=== PATIENT | female | born 1955 | race Caucasian/White ===

== ENCOUNTER → 2021-06-16 08:21 | Outpatient (BNVA) | payer MEDICARE, BC, SELFPAY | PROVIDERS: PCP Internal Medicine; Visit Provider Psychiatry & Neurology Neurology ==

== ENCOUNTER → 2021-06-24 08:14 | Outpatient (BNVA) | payer MEDICARE, BC, SELFPAY | PROVIDERS: PCP Internal Medicine; Visit Provider Psychiatry & Neurology Neurology | DX: G43.909 Migraine, unspecified, not intractable, without status migrainosus (principal); M54.2 Cervicalgia | CPT/HCPCS: 99212 ==

== ENCOUNTER → 2021-09-01 14:16 | Outpatient (BNVA) | payer MEDICARE, BC, SELFPAY | PROVIDERS: PCP Physician Assistant Medical; Visit Provider Psychiatry & Neurology Neurology | DX: G43.909 Migraine, unspecified, not intractable, without status migrainosus (principal); M54.2 Cervicalgia | CPT/HCPCS: 99212 ==

== ENCOUNTER → 2021-09-29 12:45 | Outpatient (BNVA) | payer MEDICARE, SELFPAY | PROVIDERS: PCP Physician Assistant Medical; Visit Provider Nurse Practitioner Family | DX: G43.909 Migraine, unspecified, not intractable, without status migrainosus (principal); M54.2 Cervicalgia | CPT/HCPCS: 99212 ==

== ENCOUNTER → 2021-10-24 07:49 | Outpatient (BNVA) | payer MEDICARE, OTHER, SELFPAY | PROVIDERS: PCP Physician Assistant Medical; Visit Provider Nurse Practitioner Family | DX: G43.909 Migraine, unspecified, not intractable, without status migrainosus (principal); M54.2 Cervicalgia | CPT/HCPCS: 99212 ==

== ENCOUNTER → 2021-12-07 07:49 | Outpatient (BNVA) | payer MEDICARE, OTHER, SELFPAY | PROVIDERS: PCP Physician Assistant Medical; Visit Provider Nurse Practitioner Family | DX: G43.909 Migraine, unspecified, not intractable, without status migrainosus (principal); Z79.899 Other long term (current) drug therapy | CPT/HCPCS: 99212 ==

== ENCOUNTER → 2022-03-20 08:17 | Outpatient (BNVA) | payer MEDICARE, OTHER, SELFPAY | PROVIDERS: PCP Physician Assistant Medical; Visit Provider Nurse Practitioner Family | DX: G43.909 Migraine, unspecified, not intractable, without status migrainosus (principal); M54.2 Cervicalgia | CPT/HCPCS: 99212 ==

== ENCOUNTER → 2022-09-20 08:40 | Outpatient (BNVA) | payer MEDICARE, OTHER, SELFPAY | PROVIDERS: PCP Physician Assistant Medical; Visit Provider Nurse Practitioner Family | DX: G43.909 Migraine, unspecified, not intractable, without status migrainosus (principal); G47.9 Sleep disorder, unspecified; M54.2 Cervicalgia | CPT/HCPCS: 99212 ==

== ENCOUNTER 2023-04-13 08:44 | Outpatient (AMB) | payer MEDICARE, SELFPAY ==
--- NOTE | 2023-04-13 09:00 | MHC.OFFVIS ---
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 Pt reports that last Aimovig injection was Mar 25, and migraine controls well. Pt states that she had couple of mild migraine since the last visit, and she used zolmitriptan rarely. Pt is on vitamin B2 400 mg, magnesium 400 mg and amitriptyline for migraine prevention, too. She sleeps well, and uses amitriptyline as needed, not every night. No other concerns today. [facility] Medical History Sleep disorder Thyroid disease GERD (gastroesophageal reflux disease) HTN (hypertension) Surgical History Hx of shoulder surgery Family History Father Cancer Mother Cancer Social History Alcohol intake: never Patient Tobacco Use Status: Never used Tobacco Review of Systems Const All systems reviewed & are unremarkable except as noted in HPI and below ENT Reports Normal hearing present Neuro Reports Normal hearing present Physical Exam Vital Signs: Last Vital Signs Pulse 79 04/13/23 09:02 BP 150/98 H 04/13/23 09:02 Pulse Ox 98 04/13/23 09:02 Oxygen Delivery Method Room Air 04/13/23 09:02 Const General: cooperative and comfortable Orientation/consciousness: patient oriented x3 Neck Neck: Yes full ROM and Yes supple Resp Effort & Inspection: normal respiratory effort and able to speak in complete sentences Neuro General: patient oriented x3 Cranial nerves: Yes Bilaterally intact EOM present, Yes Normal facial strength present, Yes Midline tongue present, Yes Normal hearing present, Yes Ability to bilaterally rotate head present and Yes Ability to bilaterally elevate shoulders present Cognition (Neuro): normal cognition Gait exam (Neuro): Normal gait present Psych Appearance: grossly normal Mental Status: mental status grossly normal Speech and movement: Normal speech and movement present Affect: normal affect Attitude: cooperative Assessment & Plan Assessment & Plan (1) Cervicalgia: Code(s): M54.2 - Cervicalgia (2) Migraine: Code(s): G43.909 - Migraine, unspecified, not intractable, without status migrainosus (3) Difficulty sleeping: Code(s): G47.9 - Sleep disorder, unspecified Plan Advised patient to continue to take Magnesium 400 mg qHS, Vitamin B2 400 mg q AM. Continue Aimovig 140 mg injection monthly as pt has experienced good clinical effect. Advised patient to try gabapentin 100 mg along with amitriptyline 10 tabs, 2-3tabs. If she can sleep well with gabapentin 100 mg and amitriptyline 20 mg, continue to take amitripyline 20 mg. Coding Level of Care Code Est Pt Level 3 (55661) Diagnoses Cervicalgia M54.2 Migraine G43.909 Difficulty sleeping G47.9
[2023-04-13 09:02] VITALS: BP 150/98; PULSE 79; O2SAT 98
== END 2023-04-13 09:21 | disposition home or self-care (01) ==
PROVIDERS: Visit Provider Nurse Practitioner Family
DX: M54.2 Cervicalgia (principal); G43.909 Migraine, unspecified, not intractable, without status migrainosus; G47.9 Sleep disorder, unspecified
CPT/HCPCS: 99213

== ENCOUNTER → 2023-04-13 08:44 | Outpatient (BNVA) | payer MEDICARE, SELFPAY | PROVIDERS: Visit Provider Nurse Practitioner Family | DX: G43.909 Migraine, unspecified, not intractable, without status migrainosus (principal); M54.2 Cervicalgia; G47.9 Sleep disorder, unspecified | CPT/HCPCS: 99212 ==

== ENCOUNTER 2023-11-12 08:55 | Outpatient (AMB) | payer MEDICARE, SELFPAY ==
--- NOTE | 2023-11-12 08:59 | MHC.OFFVIS ---
Vital Signs 11/12/23 09:02 Weight 128 lb BP 118/82 Blood Pressure Location Rt brachial Position Sitting Pulse 74 Pulse Source Pulse Oximeter Pulse Oximetry (%) 99 Oxygen Delivery Method Room Air Intake Visit Reasons: 1 yr f/u - Migraines-CONF Intake Note: patient presents for migraines. headaches are better no issues Allergies Penicillins Allergy (Severe, Verified 11/12/23 09:03) Skin comes off, rash, painful Sulfa (Sulfonamide Antibiotics) Allergy (Mild, Verified 11/12/23 09:03) Hives all over Medication List - Last Reconciled 11/12/23 by Kerry Bonner, TREMAYNE amitriptyline 30 mg (3 x 10 mg) PO BEDTIME 30 days amlodipine 5 mg PO DAILY brimonidine 0.2% 1 drp ophthalmic (eye) TID Po-V2-pyb-wagn-mzp-forf-boron 600 mg calcium- 800 unit-40 mg (Caltrate 600-D Plus Minerals) 1 tab PO DAILY cetirizine 10 mg PO DAILY PRN erenumab-aooe (Aimovig Autoinjector) 140 mg subcut .monthly 3 months gabapentin 100 mg PO BEDTIME magnesium oxide 400 mg PO DAILY riboflavin (vitamin B2) 400 mg PO DAILY 90 days timolol 0.5% 1 drp ophthalmic (eye) DAILY timolol maleate 0.5% 1 drp ophthalmic-Right Q12H zolmitriptan 5 mg PO .once a day HPI Comments Details: 68-yr-old female presents for f/u visit. Pt denies any significant interval medical changes. Pt reports she is not having any moderate to severe migraines since starting Aimovig. Just occasionally has a mild headache in her temples which resolves quickly if she applies ice to her head. She has her zomig with her at all times, but has not needed to use it. Buys it in [place] because it is cheaper there. She tried Gabapentin for sleep, but did not tolerate it. States that in the summer, she is more physically active- takes more walks. So she does need to take anything for sleep. In the winter, she is not as active, and may occasionally need to take an amitriptyline 10mg tab qhs. Pt reports her neck is feeling better. She is f/b ortho for bilateral shoulder and back pains. She plans to do a left shoulder repair- maybe later this year. Baseline headache characteristics: Migraine w/aura- sees lightening bolts, unilateral or bilateral, frontal/nose pressure pain a/w nausea, vomiting. anorexia, photophobia, phonophobia, activity intolerance. PFSH Medical History Sleep disorder Thyroid disease GERD (gastroesophageal reflux disease) HTN (hypertension) Surgical History Hx of shoulder surgery Family History Father Cancer Mother Cancer Social History Alcohol intake: never Patient Tobacco Use Status: Never used Tobacco Physical Exam Vital Signs: Last Vital Signs Pulse 74 11/12/23 09:02 BP 118/82 11/12/23 09:02 Pulse Ox 99 11/12/23 09:02 Oxygen Delivery Method Room Air 11/12/23 09:02 Const General: cooperative and no acute distress Orientation/consciousness: patient oriented x3 Resp Effort & Inspection: normal respiratory effort and able to speak in complete sentences Neuro General: patient oriented x3 Cranial nerves: Yes CN's II-XII intact bilaterally Cognition (Neuro): normal cognition Psych Appearance: grossly normal Mental Status: mental status grossly normal Speech and movement: Normal speech and movement present Affect: normal affect Attitude: cooperative Assessment & Plan Assessment & Plan (1) Migraine with aura: Code(s): G43.109 - Migraine with aura, not intractable, without status migrainosus Category: Medical (2) Difficulty sleeping: Code(s): G47.9 - Sleep disorder, unspecified Category: Medical Plan For migraine w/ aura prevention: Continue Aimovig 140mg sc q month- Note this costs pt $300-400/month, however pt is wary to change as it is so effective. Ajovy would be less expensive on pt's current insurance formulary. For acute migraine w/ aura tx: May use ice and rest prn. Keep Zolmitriptan 5mg w/ her at all x's. For sleep: Continue to engage in regular physical activity, this is one of the most import things one can do to promote sleep. May use Amitriptyline 10-30mg qhs for sleep. Pt stopped Gabapentin- did not tolerate. For cervicalgia- Improved. Monitor clinicallyy. F/u in 6-7 months or sooner prn. Medications: Changed From erenumab-aooe (Aimovig Autoinjector) 140 mg subcut .monthly 3 months 3 mL 1RF To erenumab-aooe (Aimovig Autoinjector) 140 mg subcut ONCE 30 days 1 mL 6RF Coding Level of Care Code Est Pt Level 4 (97419) Diagnoses Migraine with aura G43.109 Difficulty sleeping G47.9
[2023-11-12 09:02] VITALS: BP 118/82; PULSE 74; O2SAT 99
== END 2023-11-12 09:41 | disposition home or self-care (01) ==
PROVIDERS: PCP Physician Assistant Medical; Visit Provider Nurse Practitioner Family
DX: G43.109 Migraine with aura, not intractable, without status migrainosus (principal); G47.9 Sleep disorder, unspecified
CPT/HCPCS: 99214

== ENCOUNTER → 2023-11-12 08:55 | Outpatient (BNVA) | payer MEDICARE, SELFPAY | PROVIDERS: PCP Physician Assistant Medical; Visit Provider Nurse Practitioner Family | DX: G43.109 Migraine with aura, not intractable, without status migrainosus (principal); G47.9 Sleep disorder, unspecified | CPT/HCPCS: 99212 ==

== ENCOUNTER 2024-03-20 13:52 | Outpatient (REF) | payer MEDICARE, SELFPAY ==
--- NOTE | 2024-03-20 14:00 | EMG_ITS ---
Chief complaint: Acute onset of burning on both arms and legs, denies numbness. History of lumbar injections but denies any ongoing back pain. History of diabetes. Reason for referral: Evaluate for neuropathy Referred by: Kerry Bonner NP Procedure done: Bilateral upper and lower extremity NCS/EMG Precautions and/or limitations: None The limb temperature was monitored continuously and remained between 32-36 degrees C during the performance of the NCS. Nerve Conduction Studies Anti Sensory Summary Table ?Stim Site NR Onset (ms) Norm Onset (ms) Peak (ms) Norm Peak (ms) O-P Amp (?V) Norm O-P Amp Site1 Site2 Delta-0 (ms) Dist (cm) Angel (m/s) Norm Angel (m/s) Left Median Anti Sensory (2nd Digit) Wrist ? 2.1 2.8 <3.6 43.2 >10 Wrist 2nd Digit 2.1 14.0 67 Right Median Anti Sensory (2nd Digit) Wrist ? 2.0 2.8 <3.6 37.9 >10 Wrist 2nd Digit 2.0 14.0 70 Left Sural Anti Sensory (Lat Mall) Calf ? 1.9 3.8 <4.0 12.7 >5.0 Calf Lat Mall 1.9 14.0 74 Right Sural Anti Sensory (Lat Mall) Calf ? 1.3 2.1 <4.0 10.0 >5.0 Calf Lat Mall 1.3 14.0 108 Left Ulnar Anti Sensory (5th Digit) Wrist ? 2.5 3.3 <3.7 9.6 >15.0 Wrist 5th Digit 2.5 14.0 56 Right Ulnar Anti Sensory (5th Digit) Wrist ? 2.0 2.9 <3.7 38.1 >15.0 Wrist 5th Digit 2.0 14.0 70 Motor Summary Table ?Stim Site NR Onset (ms) Norm Onset (ms) O-P Amp (mV) Norm O-P Amp iAmp (mV) Amp (1st) (%) Site1 Site2 Delta-0 (ms) Dist (cm) Angel (m/s) Norm Angel (m/s) Left Median Motor (Abd Poll Brev) Wrist ? 2.7 <3.9 5.3 >4.5 6.1 100.0 Elbow Wrist 3.5 18.0 51 >45 Elbow ? 6.2 5.1 5.8 96.2 Right Median Motor (Abd Poll Brev) Wrist ? 3.1 <3.9 6.9 >4.5 7.8 100.0 Elbow Wrist 3.1 17.5 56 >45 Elbow ? 6.2 6.3 7.3 91.3 Right Peroneal Motor (Ext Dig Brev) Ankle ? 4.0 <4.0 5.3 >2.5 6.6 100.0 Ankle Ext Dig Brev 4.0 0.0 B Fib ? 8.9 5.8 6.9 109.4 B Fib Ankle 4.9 24.5 50 >40 Poplt ? 9.9 5.7 6.9 107.5 Poplt B Fib 1.0 5.0 50 >40 Left Tibial Motor (Abd Ontiveros Brev) Ankle ? 3.2 <5 14.4 >2.5 18.2 100.0 Ankle Abd Ontiveros Brev 3.2 0.0 Knee ? 10.5 11.0 13.9 76.4 Knee Ankle 7.3 34.0 47 >40 Right Tibial Motor (Abd Ontiveros Brev) Ankle ? 2.7 <5 12.7 >2.5 15.5 100.0 Ankle Abd Ontiveros Brev 2.7 0.0 Knee ? 9.7 16.1 18.9 126.8 Knee Ankle 7.0 34.0 49 >40 Left Ulnar Motor (Abd Dig Minimi) Wrist ? 2.7 <3.0 10.3 >5 11.7 100.0 B Elbow Wrist 2.4 15.5 65 >45 B Elbow ? 5.1 10.8 12.4 104.9 A Elbow B Elbow 1.5 10.0 67 >45 A Elbow ? 6.6 10.1 11.7 98.1 Right Ulnar Motor (Abd Dig Minimi) Wrist ? 2.7 <3.0 8.7 >5 10.2 100.0 B Elbow Wrist 2.5 16.0 64 >45 B Elbow ? 5.2 9.0 10.7 103.4 A Elbow B Elbow 1.5 10.0 67 >45 A Elbow ? 6.7 10.0 12.0 114.9 EMG ?Side Muscle Nerve Root Ins Act Fibs Psw Amp Dur Poly Recrt Int Pat Comment Right 1stDorInt Ulnar C8-T1 Nml Nml Nml Nml Nml 0 Nml Complete Right FlexCarRad Median C6-7 Nml Nml Nml Nml Nml 0 Nml Complete Right Biceps Musculocut C5-6 Nml Nml Nml Nml Nml 0 Nml Complete Right Triceps Radial C6-7-8 Nml Nml Nml Nml Nml 0 Nml Complete Right Deltoid Axillary C5-6 Nml Nml Nml Nml Nml 0 Nml Complete Right AbdHallucis MedPlantar S1-2 Nml Nml Nml Nml Nml 0 Nml Complete Right AntTibialis Dp Br Peron L4-5 Nml Nml Nml Nml Nml 0 Nml Complete Right PostTibialis Tibial L5, S1 Nml Nml Nml Nml Nml 0 Nml Complete Right MedGastroc Tibial S1-2 Nml Nml Nml Nml Nml 0 Nml Complete Right VastusMed Femoral L2-4 Nml Nml Nml Nml Nml 0 Nml Complete FINDINGS: All motor and sensory nerves tested showed normal latencies, amplitudes and conduction velocities. Concentric needle EMG was performed in selected muscles of the right upper and lower extremities. Study did not reveal signs of electric abnormalities as shown in the table above. IMPRESSION: 1. This is a normal study. 2. There is no electrodiagnostic evidence for median neuropathy, ulnar neuropathy, brachial plexopathy, or cervical radiculopathy. 3. There is no electrodiagnostic evidence for peroneal neuropathy, tibial neuropathy, lumbosacral plexopathy, lumbar radiculopathy, or peripheral neuropathy. Thank you for your kind referral. Catherine Dyson MD, SUZAN Board Certified, [place] Board [employer] and [employer] (ABPMR) Board Certified, [place] Board [employer] Electrodiagnostic [employer] (ABEM) CODIN 77753 x 2 MTDD
== END 2024-03-20 13:53 | disposition home or self-care (01) ==
LOC: HO.NEURO 13:52
PROVIDERS: PCP Physician Assistant Medical; Visit Provider Nurse Practitioner Family
DX: R20.0 Anesthesia of skin (principal); R20.2 Paresthesia of skin; M54.2 Cervicalgia
CPT/HCPCS: 95886; 95913

== ENCOUNTER → 2024-03-20 14:00 | Outpatient (BNV) | payer MEDICARE, SELFPAY | PROVIDERS: PCP Physician Assistant Medical; Visit Provider Physical Medicine & Rehabilitation | DX: R20.0 Anesthesia of skin (principal); R20.2 Paresthesia of skin | CPT/HCPCS: 95886; 95913 ==

== ENCOUNTER 2024-07-22 10:11 | Outpatient (AMB) | payer MEDICARE, SELFPAY ==
[2024-07-22 10:38] VITALS: BP 120/76; PULSE 80; O2SAT 100
--- NOTE | 2024-07-22 10:38 | A.OFFVIS_ITS ---
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: No Accompanied by: Self / Same As Patient Allergies Penicillins Allergy (Severe, Verified 07/22/24 10:41) Skin comes off, rash, painful Sulfa (Sulfonamide Antibiotics) Allergy (Mild, Verified 07/22/24 10:41) Hives all over Medication List - Last Reconciled 07/22/24 by TREMAYNE Sandoval amitriptyline 30 mg (3 x 10 mg) PO BEDTIME 30 days amlodipine 10 mg PO DAILY brimonidine 0.2% 1 drp ophthalmic (eye) TID Bs-H3-vto-rflc-zah-nvcx-boron 600 mg calcium- 800 unit-40 mg (Caltrate 600-D Plus Minerals) 1 tab PO DAILY erenumab-aooe (Aimovig Autoinjector) 140 mg subcut ONCE 30 days magnesium oxide 400 mg PO DAILY metformin 500 mg PO DAILY timolol 0.5% 1 drp ophthalmic (eye) DAILY timolol maleate 0.5% 1 drp ophthalmic-Right Q12H HPI Comments Details: 69-yr-old female presents for f/u visit of migraine but would also like to discuss chronic burning pain. PMH is significant for type 2 diabetes mellitus, nontoxic thyroid nodule, essential hypertension, hepatic steatosis, chronic lumbar radiculopathy, fibromyalgia, generalized anxiety disorder, depression, migraine, GERD, osteoporosis, glaucoma. Pt reports she is bothered about this ongoing burning sensation- either in her back, her legs, or upper body. Her upper back is itchy. Sometimes her arms can be cold but burning at the same time. Her eyes and face feel hot and itchy- this is not a/w migraine. She is f/b ophthalmology every 4 months- at Dr Keanu Olmos in [place]. She states she recently had a rash on her arms- which resolved. She is f/b dermatology- they do not feel this is r/t a skin process. Pt reports her neck is sometimes ok, sometimes worse. She is f/b ortho for bilateral shoulder and back pains. She states she may need a left shoulder repair. She did try holding the Aimovig for 2 weeks to see if her burning symptoms resolved, but they did not, so she resumed q 4 week dosing. She denies blue/white or red skin color changes, swelling, muscle cramps. She tried Nervive nerve relief for a couple of doses. Review of labs from PCP: Positive CHRISTIANE, 1:320 02/21/2024 CBC-WNL 04/11/2024 BMP-WNL, with exception of glucose elevated at 100. 02/21/2024 HgA1C 6.8% 02/21/2024 Alk phos 184, 02/29/2024- 191 02/29/2024 phosphorus- 4.5 02/21/2024 vitamin-D, total 85.8 02/21/2024 B12 424, folic acid greater than 20. 01/22/2024 TSH 1.65 Since the above labs, patient was referred to endocrinology for further evaluation of elevated alkaline phosphatase, which was felt to be secondary to decreased oral calcium intake and osteoporosis. Patient states she has not had follow-up related to positive CHRISTIANE finding. She states her son has a rheumatological disorder- but unsure which, he is seen in [place]. States that in the summer, she is more physically active- takes more walks and so does need to take anything for sleep. In the winter, when she is not as active, she has more sleep dififculties. She is now needing to use Amitriptyline up to 50mg qhs to help her sleep. States she does not gael this in the summer as much. The burning sensation is not better when she takes more amitriptyline. She does have dry mouth. She also is having constipation which she feels is d/t metformin and calcium. She stopped Magnesium- as this was not helping with the constipation. States the constipation was not present after starting Aimovig. Pt reports since starting Aimovig, she rarely has a moderate-severe migraine, less than once a month. Just occasionally has a mild headache in her temples which resolves quickly if she applies ice to her head. She has her zomig 5mg with her at all times. Buys it in [place] because it is cheaper there. She took Zomig last month, which was very effective- she notes that the burning sensations also stopped for the entire day. Baseline headache characteristics: Migraine w/aura- sees lightening bolts, unilateral or bilateral, frontal/nose pressure pain a/w nausea, vomiting. anorexia, photophobia, phonophobia, activity intolerance. PFSH Medical History Sleep disorder Thyroid disease GERD (gastroesophageal reflux disease) HTN (hypertension) Surgical History Hx of shoulder surgery Family History Father Cancer Mother Cancer Social History Alcohol intake: never Patient Tobacco Use Status: Never used Tobacco Physical Exam Vital Signs: Last Vital Signs Pulse 80 07/22/24 10:38 BP 120/76 07/22/24 10:38 Pulse Ox 100 07/22/24 10:38 Oxygen Delivery Method Room Air 07/22/24 10:38 Const General: cooperative and no acute distress Orientation/consciousness: patient oriented x3 Resp Effort & Inspection: normal respiratory effort and able to speak in complete sentences Skin Other: Mild dry, non-erythematous papular rash across medial thoracic aspect of back. Neuro General: patient oriented x3 and no focal motor deficits Cranial nerves: Yes CN's II-XII intact bilaterally Cognition (Neuro): normal cognition Gait exam (Neuro): Normal gait present Psych Appearance: grossly normal Mental Status: mental status grossly normal Speech and movement: Normal speech and movement present Affect: normal affect Attitude: cooperative Assessment & Plan Assessment & Plan (1) Migraine with aura: Code(s): G43.109 - Migraine with aura, not intractable, without status migrainosus Category: Medical (2) Difficulty sleeping: Code(s): G47.9 - Sleep disorder, unspecified Category: Medical (3) Paresthesia of upper and lower extremities of both sides: Code(s): R20.2 - Paresthesia of skin Category: Medical Plan For chronic burning pain: Reviewed previous workup which is notable for Positive CHRISTIANE, 1:320. She also reports her son has a rheumatological condition which is being treated in [place], patient was asked to clarify with her son with his specific rheumatological disorder is. We will take the liberty of referring patient to Rheumatology, to assess for Sjogren's syndrome. Future considerations to include skin biopsy. For migraine w/ aura prevention: Continue Aimovig 140mg sc q month- Note this costs pt $300-400/month, however pt is wary to change as it is so effective. Ajovy would be less expensive on pt's current insurance formulary. For acute migraine w/ aura tx: May use ice and rest prn. Keep Zolmitriptan 5mg w/ her at all x's. For sleep: Continue to engage in regular physical activity, this is one of the most import things one can do to promote sleep. May use Amitriptyline 10-30mg qhs for sleep. Pt stopped Gabapentin- did not tolerate. For cervicalgia- Improved. Monitor clinically. F/u in 6-7 months or sooner prn. Coding Level of Care Code Est Pt Level 4 (56894) Diagnoses Migraine with aura G43.109 Difficulty sleeping G47.9 Paresthesia of upper and lower extremities of both sides R20.2
== END 2024-07-22 11:51 | disposition home or self-care (01) ==
PROVIDERS: PCP Physician Assistant Medical; Visit Provider Nurse Practitioner Family
DX: G43.109 Migraine with aura, not intractable, without status migrainosus (principal); G47.9 Sleep disorder, unspecified; R20.2 Paresthesia of skin
CPT/HCPCS: 99214

== ENCOUNTER → 2024-07-22 10:11 | Outpatient (BNVA) | payer MEDICARE, SELFPAY | PROVIDERS: PCP Physician Assistant Medical; Visit Provider Nurse Practitioner Family | DX: G43.109 Migraine with aura, not intractable, without status migrainosus (principal); G47.9 Sleep disorder, unspecified; R20.2 Paresthesia of skin | CPT/HCPCS: 99212 ==

== ENCOUNTER 2025-01-27 07:38 | Outpatient (AMB) | payer MEDICARE, SELFPAY ==
--- OUTSIDE RECORDS SUMMARY | 2025-01-22 07:42 | XMS_ITS | Encounter Summary ---
Author Organization [facility] Address [address] [place] [address] Care Team Providers Care Orthopedic Shoe Fitter Name Role Phone Uriel Pope Primary Care Provider [phone] Reason for Referral * Hospital - Outpatient (Routine) - Closed Specialty Diagnoses / Procedures Referred By [facility] Referred To Contact Diagnoses Colon cancer screening Procedures COLONOSCOPY Anesthesia - MAC; [facility] ENDOSCOPY Samuel Guy MD [address] [address] Phone: tel: fax: [facility] Endoscopy [address] [place] [address] Referral ID Status Reason Start Date Expiration Date Visits Re quested Visits Authorized [id number] Closed 09/30/2024 09/30/2025 1 1 Reason for Visit * Auth/Cert (Routine) Specialty Diagnoses / Procedures Referred By [facility] Referred To Contact Diagnoses Encounter for screening for malignant neoplasm of colon Procedures COLONOSCOPY [facility] Endoscopy [address] [place] [address] Phone: tel: Referral ID Status Reason Start Date Expiration Date Visits Re quested Visits Authorized [id number] 1 1 Encounter Details Date Type Department Care Team (Latest Contact Info) Description 01/22/2025 7:42 AM EDT - 01/22/2025 11:59 PM EDT Hospital Encounter [facility] Endoscopy [address] [place] [address] Samuel Guy MD [address] [place] [phone] Evelina DevanDO [address] [place] [address] Armin Gao CRNA [address] [place], [place] [phone] Colon cancer screening Discharge Disposition: Home or Self Care Social History Tobacco Use Types Packs/Day Years Used Date Smoking Tobacco: Never Smokeless Tobacco: Never Alcohol Use Standard Drinks/Week Comments No 0 (1 standard drink = 0.6 oz pur e alcohol) Interpersonal Safety Answer Date Record ed Physical Abuse 01/22/2025 Verbal Abuse 01/22/2025 Comments No Sex and Gender Information Value Date Recorded Sex Assigned at Female 01/03/2025 12:31 PM EDT Legal Sex Female 3:21 AM EST Gender Identity Female 01/03/2025 12:31 PM EDT Sexual Orientation Straight 01/22/2025 7: 38 AM EDT Travel History Travel Start Travel End Shukri 12/01/2024 01/03/2025 documented as of this encounter Last Filed Vital Signs Vital Sign Reading Time Taken Comments Blood Pressure 128/79 01/22/2025 9:52 AM EDT Pulse 69 01/22/2025 9:52 AM EDT Temperature 36.3 C (97.3 F) 01/22/2025 8:30 AM EDT Respiratory Rate 16 01/22/2025 9:52 AM EDT Oxygen Saturation 100% 01/22/2025 9:52 AM EDT Inhaled Oxygen Concentration - - Weight 46.7 kg (103 lb) 01/22/2025 8:30 AM EDT Height 144.8 cm (4' 9 ) 01/22/2025 8:30 AM EDT Body Mass Index 22.29 01/22/2025 8:30 AM EDT documented in this encounter Discharge Instructions * Attachments The following attachments cannot be sent through Care Everywhere. * Hemorrhoids (Albanian) * Colonoscopy: Post op (Albanian) documented in this encounter Medications at Time of Discharge amitriptyline (ELAVIL) 10 mg tablet Take 1 tablet (10 mg total) by mouth at bedtime. 03/02/2021 amLODIPine (NORVASC) 5 mg tablet Take 2 tablets (10 mg total) by mouth 1 (one) time each day. 02/01/2021 Bifidobacterium infantis (Align) 4 mg capsule one tablet by mouth daily. 04/09/2015 calcium citrate/vitamin D3 (CITRACAL + D MAXIMUM ORAL) Take by mouth 2 (two) times a day. dorzolamide-malia loL (COSOPT) 22.3-6.8 mg/mL ophthalmic solution 1 drop 2 (two) times a day. erenumab-aooe (Aimovig Autoinjector) 140 mg/mL injection Inject 1 mL (140 mg total) under the skin every 30 (thirty) days. 12/24/2020 lansoprazole (PREVACID) [address] capsule Take 2 capsules (30 mg total) by mouth 1 (one) time each day before breakfast. latanoprost (XALATAN) 0.005 % ophthalmic solution Administer 1 drop into both eyes at bedtime. magnesium oxide (MAG-OX) 400 mg magnesium tablet Take 1 tablet (400 mg total) by mouth 1 (one) time each day. metFORMIN (FORTAMET) 500 mg 24 hr tablet Take 1 tablet (500 mg total) by mouth 1 (one) time each day with dinner. Do not crush, chew, or split. riboflavin (VITAMIN B2) 400 mg tablet Take 1 tablet (400 mg total) by mouth 1 (one) time each day. triamcinolone (NASACORT) 55 mcg nasal inhaler Administer 1 spray into affected nostril(s) 1 (one) time each day. 09/17/2019 documented as of this encounter Discharge Disposition Disposition Code Departure Means Destination Home or Self Care documented in this encounter Progress Notes * Huma Dunn RN - 01/22/2025 9:57 AM EDT Problem: Cognitive:Periop Procedure - Minor Goal: Knowledge of disease or condition will improve Outcome: Adequate for Discharge Problem: Sensory:Periop Procedure - Minor Goal: Demonstrates/reports adequate pain control Outcome: Adequate for Discharge * July Zarco RN - 01/22/2025 8:33 AM EDT Problem: Cognitive:Periop Procedure - Minor Goal: Knowledge of disease or condition will improve Outcome: Progressing Problem: Sensory:Periop Procedure - Minor Goal: Demonstrates/reports adequate pain control Outcome: Progressing PT VERBALIZED UNDERSTAND OF DC INSTRUCTIONS, FALL RISK REVIEWED, CALL KERR AT BEDSIDE. documented in this encounter H&P Notes * Samuel Guy MD - 01/22/2025 9:00 AM EDT Pre-Op Diagnosis: CRC Screening Proposed Procedure: Colonoscopy Performing Surgeon/MD/Endoscopist: Samuel Guy MD Medical/History: Past Medical History: Diagnosis Date Anemia Anxiety Depression Diabetes mellitus ([facility] V24, [facility] V28) GERD (gastroesophageal reflux disease) Glaucoma Hypertension Migraines Past Surgical History: Procedure Laterality Date CHOLECYSTECTOMY PROCEDURE: HISTORICAL CHOLECYSTECTOMY HYSTERECTOMY PROCEDURE: HISTORICAL HYSTERECTOMY SHOULDER SURGERY Right Medications/Allergies: Prior to Admission medications Medication Sig Start Date End Date Taking? Authorizing Provider amitriptyline (ELAVIL) 10 mg tablet Take 1 tablet (10 mg total) by mouth at bedtime. 03/02/21 Yes Historical Provider, amLODIPine (NORVASC) 5 mg tablet Take 2 tablets (10 mg total) by mouth 1 (one) time each day. 02/01/21 Yes Historical Provider, Bifidobacterium infantis (Align) 4 mg capsule one tablet by mouth daily. 04/09/15 Yes Historical Provider, calcium citrate/vitamin D3 (CITRACAL + D MAXIMUM ORAL) Take by mouth 2 (two) times a day. Yes Historical Provider, dorzolamide-timoloL (COSOPT) 22.3-6.8 mg/mL ophthalmic solution 1 drop 2 (two) times a day. Yes Historical Provider, lansoprazole (PREVACID) [address] capsule Take 2 capsules (30 mg total) by mouth 1 (one) time each day before breakfast. Yes Historical Provider, latanoprost (XALATAN) 0.005 % ophthalmic solution Administer 1 drop into both eyes at bedtime. Yes Historical Provider, magnesium oxide (MAG-OX) 400 mg magnesium tablet Take 1 tablet (400 mg total) by mouth 1 (one) timeeach day. Yes Historical Provider, metFORMIN (FORTAMET) 500 mg 24 hr tablet Take 1 tablet (500 mg total) by mouth 1 (one) time each day with dinner. Do not crush, chew, or split. Yes Historical Provider, riboflavin (VITAMIN B2) 400 mg tablet Take 1 tablet (400 mg total) by mouth 1 (one) time each day. Yes Historical Provider, erenumab-aooe (Aimovig Autoinjector) 140 mg/mL injection Inject 1 mL (140 mg total) under the skin every 30 (thirty) days. 12/24/20 Historical Provider, triamcinolone (NASACORT) 55 mcg nasal inhaler Administer 1 spray into affected nostril(s) 1 (one) time each day. 09/17/19 Historical Provider, bisacodyL (DULCOLAX) 5 mg EC tablet Take 2 tablets by mouth right before beginning bowel prep. See instructions provided by the office 01/08/25 01/22/25 Chanelle Jackson NP brimonidine 0.025 % drops Administer 1 drop into both eyes every 8 (eight) hours. Patient not taking: Reported on 01/15/2025 01/22/25 Historical Provider, diclofenac (Voltaren) 1 % topical gel APPLY SPARINGLY TO AFFECTED AREA(S) ONCE DAILY Patient not taking: Reported on 01/15/2025 02/02/15 01/22/25 Historical Provider, diclofenac (VOLTAREN) 75 mg EC tablet Take 1 tablet (75 mg total) by mouth. Patient not taking: Reported on 01/15/2025 08/10/20 01/22/25 Historical Provider, hydrocortisone 1 % ointment Apply topically 2 (two) times a day. Patient not taking: Reported on 01/15/2025 01/22/25 Historical Provider, polyethylene glycol (Golytely) 236-22.74-6.74 -5.86 gram solution Take 4L by mouth once for one dose. May substitue any PEG. Starting at 2PM the day before your procedure drink 1 8oz glasses at your own pace until you complete half of the gallon. Finish 2nd half of the gallon at 8PM. 01/08/25 01/22/25Chanelle Jackson NP timoloL (BETIMOL) 0.5 % ophthalmic solution Administer 1 drop into the right eye 1 (one) time each day. Patient not taking: Reported on 01/15/2025 01/22/25 Historical Provider, VIT B COMPLEX 100 COMBO NO.2 ORAL Take by mouth. Patient not taking: Reported on 01/15/2025 01/22/25 Historical Provider, ZOLMitriptan (ZOMIG) 5 mg tablet Take 1 tablet (5 mg total) by mouth. Patient not taking: Reported on 01/15/2025 02/18/21 01/22/25 Historical Provider, Patient Age:69 y.o. Vitals: Vitals: 01/22/25 0830 BP: (!) 150/89 Pulse: 70 Resp: 16 Temp: 36.3 ??C (97.3 ??F) SpO2: 100% Physical Exam: Mental Status: Clear HEENT: WNL Heart: WNL Lungs: WNL Abdomen: WNL Extremities: WNL Neuro: WNL Labs: Imaging: Diagnosis/Plan: Screening Colonoscopy documented in this encounter Procedure Notes * Huma Dunn RN - 01/22/2025 9:57 AM EDT FINDINGS AND DISCHARGE INSTRUCTIONS REVIEWED WITH PT. PT VERBALIZES UNDERSTANDING. PT SAUL PO PRIOR TO D/C. PT D/C'D WITH BELONGINGS. documented in this encounter Plan of Treatment Not on file documented as of this encounter Procedures Procedure Name Priority Date/Time Associated Diagnosis Comments COLONOSCOPY Routine 01/22/2025 9:31 AM EDT Colon cancer screening documented in this encounter Results * COLONOSCOPY Anesthesia - MAC; [facility] ENDOSCOPY (01/22/2025 9:31 AM EDT) Anatomical Region Laterality Modality Other 01/22/2025 9:03 AM EDT Impressions 01/22/2025 9:32 AM EDT - Internal hemorrhoids. - No specimens collected. Recommendation: - Repeat colonoscopy in 10 years for screening purposes. - Use fiber, for example Citrucel, Fibercon, Konsyl or Metamucil. Narrative 01/22/2025 9:32 AM EDT [facility] GI Patient Name: Ana Maria Quintana Procedure Date: 01/22/2025 9:03 AM Date of : 1955 Age: 69 Gender: Female Note Status: Finalized Attending MD: Samuel Guy MD, Procedure Date No Time: 01/22/2025 Procedure: Colonoscopy Indications: Screening for colorectal malignant neoplasm Providers: Samuel Guy MD Referring MD: Samuel Guy MD Medicines: Propofol per Anesthesia Complications: No immediate complications. Estimated Blood Loss: Estimated blood loss: none. Procedure: Pre-Anesthesia Assessment: - ASA Grade Assessment: II - A patient with mild systemic disease. After I obtained informed consent, the scope was passed under direct vision. Throughout the procedure, the patient's blood pressure, pulse, and oxygen saturations were monitored continuously.The Olympus Pediatric Colonosocpe was introduced through the anus and advanced to the cecum, identified by appendiceal orifice and ileocecal valve. The colonoscopy was performed without difficulty. The patient tolerated the procedure well. The quality of the bowel preparation was good. Findings: The perianal and digital rectal examinations were normal. Internal hemorrhoids were found during endoscopy. The hemorrhoids were Grade I (internal hemorrhoids that do not prolapse). Procedure Code(s): --- Professional --- G0121, Colorectal cancer screening; colonoscopy on individual not meeting criteria for high risk Diagnosis Code(s): --- Professional --- Z12.11, Encounter for screening for malignant neoplasm of colon K64.0, First degree hemorrhoids CPT copyright 2020 [employer]. All rights reserved. The codes documented in this report are preliminary and upon thread milling machine set up operator review may be revised to meet current compliance requirements. Samuel Guy MD 01/22/2025 9:31:59 AM This report has been signed electronically.Samuel Guy MD Number of Addenda: 0 Note Initiated On: 01/22/2025 9:03 AM Scope In: Scope Out: Endoscopy Department at [facility] - [address] [place] [id number] Procedure Note Samuel Guy MD - 01/22/2025 [facility] GI Patient Name: Ana Maria Quintana Procedure Date: 01/22/2025 9:03 AM Date of : 1955 Age: 69 Gender: Female Note Status: Finalized Attending MD: Samuel Guy MD, Procedure Date No Time: 01/22/2025 Procedure: Colonoscopy Indications: Screening for colorectal malignant neoplasm Providers: Samuel Guy MD Referring MD: Samuel Guy MD Medicines: Propofol per Anesthesia Complications: No immediate complications. Estimated Blood Loss: Estimated blood loss: none. Procedure: Pre-Anesthesia Assessment: - ASA Grade Assessment: II - A patient with mild systemic disease. After I obtained informed consent, the scope was passed under direct vision. Throughout theprocedure, the patient's blood pressure, pulse, and oxygen saturations were monitored continuously.The Olympus Pediatric Colonosocpe was introduced through theanus and advanced to the cecum, identified byappendiceal orifice and ileocecal valve. The colonoscopy was performed without difficulty. The patient tolerated the procedure well. The quality of the bowel preparation was good. Findings: The perianal and digital rectal examinations were normal. Internal hemorrhoids were found during endoscopy.The hemorrhoids were Grade I (internal hemorrhoids thatdo not prolapse). Procedure Code(s): --- Professional --- G0121, Colorectal cancer screening; colonoscopy on individual not meeting criteria for high risk Diagnosis Code(s): --- Professional --- Z12.11, Encounter for screening for malignantneoplasm of colon K64.0, First degree hemorrhoids CPT copyright 2020 [employer]. All rights reserved. The codes documented in this report are preliminary and upon thread milling machine set up operator reviewmay be revised to meet current compliance requirements. Samuel Guy MD 01/22/2025 9:31:59 AM This report has been signed electronically.Samuel Guy MD Number of Addenda: 0 Note Initiated On: 01/22/2025 9:03 AM Scope In: Scope Out: Endoscopy Department at [facility] - [address] [place] [phone] IMPRESSION: - Internal hemorrhoids. - No specimens collected. Recommendation: - Repeat colonoscopy in 10 years for screening purposes. - Use fiber, for example Citrucel, Fibercon, Konsylor Metamucil. us Samuel Guy MD GI~PROCEDURE ORDERABLES Final Re sult documented in this encounter Visit Diagnoses Diagnosis Colon cancer screening Special screening for malignant neoplasms, colon documented in this encounter Discontinued Medications Medication Sig Discontinue Reason Start Date End Da te bisacodyL (DULCOLAX) 5 mg EC tablet Take 2 tablets by mouth right before beginning bowel prep. See instructions provided by the office 01/08/2025 01/22/2025 brimonidine 0.025 % drops Administer 1 drop into both eyes every 8 (eight) hours. 01/22/2025 diclofenac (Voltaren) 1 % topical gel APPLY SPARINGLY TO AFFECTED AREA(S) ONCE DAILY 02/02/2015 01/22/2025 diclofenac (VOLTAREN) 75 mg EC tablet Take 1 tablet (75 mg total) by mouth. 08/10/2020 01/22/2025 hydrocortisone 1 % ointment Apply topically 2 (two) times a day. 01/22/2025 polyethylene glycol (Golytely) 236-22.74-6.74 -5.86 gram solution Take 4L by mouth once for one dose. May substitue any PEG. Starting at 2PM the day before your procedure drink 1 8oz glasses at your own pace until you complete half of the gallon. Finish 2nd half of the gallon at 8PM. 01/08/2025 01/22/2025 timoloL (BETIMOL) 0.5 % ophthalmic solution Administer 1 drop into the right eye 1 (one) time each day. 01/22/2025 ZOLMitriptan (ZOMIG) 5 mg tablet Take 1 tablet (5 mg total) by mouth. 02/18/2021 01/22/2025 VIT B COMPLEX 100 COMBO NO.2 ORAL Take by mouth. 01/22/2025 documented as of this encounter Historical Medications * This list may reflect changes made after this encounter. dorzolamide-timol oL (COSOPT) 22.3-6.8 mg/mL ophthalmic solution 1 drop 2 (two) times a day. riboflavin (VITAMIN B2) 400 mg tablet Take 1 tablet (400 mg total) by mouth 1 (one) time each day. added in this encounter Orders Discharge Count Last Ordered Date First Orde red Date DISCHARGE PATIENT 1 01/22/2025 documented in this encounter Care Teams Orthopedic Shoe Fitter Relationship Specialty Start Date End Date Uriel Pope PA [address] [place] [address] PCP - General Physician Monitoring Specialist 09/29/24 documented as of this encounter
--- OUTSIDE RECORDS SUMMARY | 2025-01-22 09:07 | XMS_ITS | Encounter Summary ---
Author Organization [employer] Address [address] [place] [address] Care Team Providers Care Mechanical Energy Engineer Name Role Phone Uriel Pope Primary Care Provider [phone] Reason for Visit * Auth/Cert (Routine) Specialty Diagnoses / Procedures Referred By Fern branch Referred To Contact Diagnoses Encounter for screening for malignant neoplasm of colon Procedures COLONOSCOPY [facility] [address] [place] [address] Phone: tel: Referral ID Status Reason Start Date Expiration Date Visits Re quested Visits Authorized [id number] 1 1 Encounter Details Date Type Department Care Team (Late st Contact Info) Description 01/22/2025 9:07 AM EDT Anesthesia Event [facility] Endoscopy [address] [place] [id number] Devan Hoyt DO [address] [place] [address] Anesthesia Record Procedure Summary Procedure Name Responsible Anesthesiologist Anesthesia Start Time Anesthesia Stop Time COLONOSCOPY Devan Hoyt DO 01/22/25 0907 0934 Events Date Time Event Comment 01/22/2025 0827 0907 An Start 0907 An Start Data The patient wa s reevaluated immediately before moderate or deep sedation use and before anesthesia induction. 0907 In Room 0911 Anesthesia Ready 0929 an stop data 0931 Out of Room 0931 Handoff to RN I completed my handoff to the receiving nurse during which we: 1. Identified the patient 2. Identified the responsible provider 3. Reviewed the pertinent medical history 4. Discussed the surgical course 5. Reviewed intra-op anesthesia management and issues during anesthesia 6. Set expectations for post-procedure period 7. Allowed opportunity for questions and acknowledgement of understanding. 933 An Stop Meds Name Total propofol (DIPRIVAN) injection 10 mg/mL 2 10 mg lidocaine PF (XYLOCAINE-MPF) local injec tion 2% 50 mg lactated Ringer's infusion 0 mL * Agents No agents on file. * Blood No blood administrations on file. Lines, Drains, and Airways Type Details Placement Removal Peripheral IV Placement Date: 01/03 06/28; Placement Time: 834; Catheter Size: 20 G; Orientation: Posterior, Right; Location: Hand; Site Prep: Chlorhexidine; Insertion Attempts: 1; Patient Tolerance: Tolerated well; Removal Date: 01/22/25; Removal Time: 94901/22/25834 by July Zarco RN 01/22/25949 by Huma Dunn RN documented in this encounter Social History Tobacco Use Types Packs/Day Years [...] EDT Travel History Travel Start Travel End [facility] 12/01/2024 01/03/2025 documented as of this encounter Progress Notes * Armin Gao CRNA - 01/22/2025 9:34 AM EDT Patient: Ana Maria Quintana Procedure Summary Date: 01/22/25 Room / Location: [facility] Endoscopy Anesthesia Start: 906 Anesthesia Stop: 933 Procedure: COLONOSCOPY Diagnosis: Colon cancer screening (Screening for colorectal malignant neoplasm) Scheduled Providers: Samuel Guy MD; Devan Hoyt DO; Armin Gao CRNA Responsible Provider: Devan Hoyt DO Anesthesia Type: MAC ASA Status: 2 Anesthesia Plan: MAC Last Vitals: Vitals Value Taken Time BP 114/72 01/22/25 0934 Temp 97 01/22/25 0934 Pulse 69 01/22/25 0934 Resp 16 01/22/25 0934 SpO2 99 01/22/25 0934 No data recorded Anesthesia Post Evaluation Patient location during evaluation: PACU Patient participation: waiting for patient participation Level of consciousness: responsive to light touch Pain score: 0 Pain management: adequate Airway patency: patent Anesthetic complications: no Cardiovascular status: acceptable and stable Respiratory status: acceptable Hydration status: acceptable Nausea: No Vomiting: No There were no known notable events for this encounter. * Devan Hoyt DO - 01/22/2025 8:26 AM EDT 69 y.o. female scheduled for Colon cancer screening [COLONOSCOPY] Ht Readings from Last 1 Encounters: 01/15/25 1.473 m (58 ) Wt Readings from Last 1 Encounters: 01/15/25 47.6 kg (105 lb) Body mass index is 21.95 kg/m??. No past medical history on file. Past Surgical History: Procedure Laterality Date CHOLECYSTECTOMY PROCEDURE: HISTORICAL CHOLECYSTECTOMY HYSTERECTOMY PROCEDURE: HISTORICAL HYSTERECTOMY Denies anesthesia complications Allergies Allergen Reactions Buspirone Carisoprodol-Aspirin Nausea And Vomiting Codeine Nausea And Vomiting Gabapentin Nausea And Vomiting Hydrocodone Nausea And Vomiting Naproxen Oxycodone GI intolerance Penicillins Sulfadiazine Rash Tramadol Nausea And Vomiting Iodine Rash Current Outpatient Medications on File Prior to Encounter Medication Sig Dispense Refill amitriptyline (ELAVIL) 10 mg tablet Take 1 tablet (10 mg total) by mouth at bedtime. amLODIPine (NORVASC) 5 mg tablet Take 2 tablets (10 mg total) by mouth 1 (one) time each day. Bifidobacterium infantis (Align) 4 mg capsule one tablet by mouth daily. calcium citrate/vitamin D3 (CITRACAL + D MAXIMUM ORAL) Take by mouth 2 (two) times a day. dorzolamide-timoloL (COSOPT) 22.3-6.8 mg/mL ophthalmic solution 1 drop 2 (two) times a day. lansoprazole (PREVACID) [address] capsule Take 2 capsules (30 mg total) by mouth 1 (one) time each day before breakfast. latanoprost (XALATAN) 0.005 % ophthalmic solution Administer 1 drop into both eyes at bedtime. magnesium oxide (MAG-OX) 400 mg magnesium tablet Take 1 tablet (400 mg total) by mouth 1 (one) timeeach day. metFORMIN (FORTAMET) 500 mg 24 hr tablet Take 1 tablet (500 mg total) by mouth 1 (one) time each day with dinner. Do not crush, chew, or split. riboflavin (VITAMIN B2) 400 mg tablet Take 1 tablet (400 mg total) by mouth 1 (one) time each day. erenumab-aooe (Aimovig Autoinjector) 140 mg/mL injection Inject 1 mL (140 mg total) under the skin every 30 (thirty) days. polyethylene glycol (Golytely) 236-22.74-6.74 -5.86 gram solution Take 4L by mouth once for one dose. May substitue any PEG. Starting at 2PM the day before your procedure drink 1 8oz glasses at your own pace until you complete half of the gallon. Finish 2nd half of the gallon at 8PM. 4000 mL 0 timoloL (BETIMOL) 0.5 % ophthalmic solution Administer 1 drop into the right eye 1 (one) time each day. (Patient not taking: Reported on 01/15/2025) triamcinolone (NASACORT) 55 mcg nasal inhaler Administer 1 spray into affected nostril(s) 1 (one) time each day. VIT B COMPLEX 100 COMBO NO.2 ORAL Take by mouth. (Patient not taking: Reported on 01/15/2025) ZOLMitriptan (ZOMIG) 5 mg tablet Take 1 tablet (5 mg total) by mouth. (Patient not taking: Reportedon 01/15/2025) [DISCONTINUED] bisacodyL (DULCOLAX) 5 mg EC tablet Take 2 tablets by mouth right before beginning bowel prep. See instructions provided by the office 2 tablet 0 [DISCONTINUED] brimonidine 0.025 % drops Administer 1 drop into both eyes every 8 (eight) hours. (Patient not taking: Reported on 01/15/2025) [DISCONTINUED] diclofenac (Voltaren) 1 % topical gel APPLY SPARINGLY TO AFFECTED AREA(S) ONCE DAILY(Patient not taking: Reported on 01/15/2025) [DISCONTINUED] diclofenac (VOLTAREN) 75 mg EC tablet Take 1 tablet (75 mg total) by mouth. (Patientnot taking: Reported on 01/15/2025) [DISCONTINUED] hydrocortisone 1 % ointment Apply topically 2 (two) times a day. (Patient not taking: Reported on 01/15/2025) No current facility-administered medications on file prior to encounter. Current In-hospital Medications Prior to Admission medications Medication Sig Start [...] every 30 (thirty) days. 12/24/20 Historical Provider, polyethylene glycol (Golytely) 236-22.74-6.74 -5.86 gram solution Take 4L by mouth once for one dose. May substitue any PEG. Starting at 2PM the day before your procedure drink 1 8oz glasses at your own pace until you complete half of the gallon. Finish 2nd half of the gallon at 8PM. 01/08/25 Chanelle Jackson NP timoloL (BETIMOL) 0.5 % ophthalmic solution Administer 1 drop into the right eye 1 (one) time each day. Patient not taking: Reported on 01/15/2025 Historical Provider, triamcinolone (NASACORT) 55 mcg nasal inhaler Administer 1 spray into affected nostril(s) 1 (one) time each day. 09/17/19 Historical Provider, VIT B COMPLEX 100 COMBO NO.2 ORAL Take by mouth. Patient not taking: Reported on 01/15/2025 Historical Provider, ZOLMitriptan (ZOMIG) 5 mg tablet Take 1 tablet (5 mg total) by mouth. Patient not taking: Reported on 01/15/2025 02/18/21 Historical Provider, bisacodyL (DULCOLAX) 5 mg EC [...] taking: Reported on 01/15/2025 08/10/20 01/22/25 Historical ProviderMD hydrocortisone 1 % ointment Apply topically 2 (two) times a day. Patient not taking: Reported on 01/15/2025 01/22/25 Historical ProviderMD Social History Tobacco Use Smoking status: Never Smokeless tobacco: Never Substance Use Topics Alcohol use: No Is the patient a current smoker (e.g. cigarette, cigar, pip, e-cigarette, or mariajuana)? Yes [] No[] Patient previously instructed to abstain from smoking on the day of procedure? Yes [] No[] Patient smoked on the day of procedure? Yes [] No[] ASPIRE smoking VBR: [] Not interested in quitting [] Interested in quitting- referred to treatment [] Interested in quitting - treatment provided Visit Vitals Ht 1.473 m (58 ) Wt 47.6 kg (105 lb) BMI 21.95 kg/m?? Smoking Status Never BSA 1.38 m?? LABS: No results found for: WBC , HGB , HCT , MCV , PLT No results found for: GLUCOSE , CALCIUM , NA , K , CO2 , CL , BUN , CREATININE No results found for: INR , PROTIME No results found for: PTT EKG No results found for this or any previous visit (from the past 4464 hours). ECHO No results found for this or any previous visit. CATH No results found for this or any previous visit. Relevant Problems Cardio (+) Essential hypertension (+) Internal hemorrhoids (+) Migraine Neuro/Psych (+) Migraine GI (+) Esophageal reflux (+) Fatty liver Clinical information reviewed: Allergies Meds Anesthesia Plan ASA 2 Anesthesia Plan: MAC Anesthesia Risks Discussed serious complications Induction method: intravenous Anesthetic plan and risks discussed with patient. Anesthesia Evaluation Patient summary reviewed Airway Mallampati: II Dental - normal exam Pulmonary - normal exam Cardiovascular - normal exam (+) hypertension Neuro/Psych GI/Hepatic/Renal (+) GERD, liver disease Endo/Other Abdominal PONV RISK SCORE: 2 Vitals: 01/15/25 1000 Weight: 47.6 kg (105 lb) Height: 1.473 m (58 ) SpO2 Readings from Last 1 Encounters: No data found for SpO2 No results found for: WBC , RBC , HGB , HCT , PLT , MCV Allergies Allergen Reactions Buspirone Carisoprodol-Aspirin Nausea And Vomiting Codeine Nausea And Vomiting Gabapentin Nausea And Vomiting Hydrocodone Nausea And Vomiting Naproxen Oxycodone GI intolerance Penicillins Sulfadiazine Rash Tramadol Nausea And Vomiting Iodine Rash STOP BANG: No data recorded NPO Status: No data recorded documented in this encounter Plan of Treatment Not on file documented as of this encounter Visit Diagnoses Not on filedocumented in this encounter Administered Medications Inactive Administered Medications - up to 3 most recent administrations Medication Order MAR Action Action Date Dose Rate Site lactated Ringer's infusion intravenous, Continuous PRN, Starting on Rimma 01/22/25 at 0912, Anesthesia Intraprocedure Rate/Dose Change 01/22/2025 9:28 AM EDT 400 mL/hr New Bag 01/22/2025 9:12 AM EDT 125 mL/hr lidocaine (PF) (XYLOCAINE-MPF) 2 % injection injection, As needed, Starting on Rimma 01/22/25 at 0912, Anesthesia Intraprocedure Given 01/22/2025 9:12 AM EDT 50 mg propofoL (DIPRIVAN) injection intravenous, As needed, Starting on Rimma 01/22/25 at 0912, Anesthesia Intraprocedure Given 01/22/2025 9:22 AM EDT 3 0 mg Given 01/22/2025 9:17 AM EDT 50 mg Given 01/22/2025 9:13 AM EDT 50 mg documented in this encounter Care Teams Mechanical Energy Engineer Relationship Specialty Start Date End Date Uriel Pope PA [address] [place] [address] PCP - General Physician Ground Source Heat Pump Technician 09/29/24 documented as of this encounter
--- OUTSIDE RECORDS SUMMARY | 2025-01-27 07:44 | XMS_ITS | Clinical Summary ---
Author Organization [address] [facility] Address [address] [place] [address] Phone Care Team Providers Care Four Roll Calender Operator Name Role Phone Uriel Pope Primary Care Provider [phone] Allergies Active Allergy Reactions Criticality Noted Date Comments Buspirone 11/28/2013 Carisoprodol-Aspirin Nausea And Vomiting 2011 Codeine Nausea And Vomiting 02/09/2012 Gabapentin Nausea And Vomiting 02/09/2012 Hydrocodone Nausea And Vomiting 02/09/2012 Iodine Rash Low 10/18/2023 Naproxen 09/29/2024 Oxycodone GI intolerance 01/22/2025 Penicillins 04/02/2009 Sulfadiazine Rash 09/29/2024 Tramadol Nausea And Vomiting 02/09/2012 Medications amitriptyline (ELAVIL) 10 mg tablet Take 1 tablet (10 mg total) by mouth at bedtime. 03/02/20 21 Active amLODIPine (NORVASC) 5 mg tablet Take 2 tablets (10 mg total) by mouth 1 (one) time each day. 02/02/20 21 Active Bifidobacteriu m infantis (Align) 4 mg capsule one tablet by mouth daily. 04/09/20 15 Active erenumab-aooe (Aimovig Autoinjector) 140 mg/mL injection Inject 1 mL (140 mg total) under the skin every 30 (thirty) days. 12/25/19 21 Active lansoprazole (PREVACID) [address] capsule Take 2 capsules (30 mg total) by mouth 1 (one) time each day before breakfast. Active triamcinolone (NASACORT) 55 mcg nasal inhaler Administer 1 spray into affected nostril(s) 1 (one) time each day. 09/17/19 20 Active calcium citrate/vitami n D3 (CITRACAL + D MAXIMUM ORAL) Take by mouth 2 (two) times a day. Active latanoprost (XALATAN) 0.005 % ophthalmic solution Administer 1 drop into both eyes at bedtime. Active magnesium oxide (MAG-OX) 400 mg magnesium tablet Take 1 tablet (400 mg total) by mouth 1 (one) time each day. Active metFORMIN (FORTAMET) 500 mg 24 hr tablet Take 1 tablet (500 mg total) by mouth 1 (one) time each day with dinner. Do not crush, chew, or split. Active riboflavin (VITAMIN B2) 400 mg tablet Take 1 tablet (400 mg total) by mouth 1 (one) time each day. Active dorzolamide-ti moloL (COSOPT) 22.3-6.8 mg/mL ophthalmic solution 1 drop 2 (two) times a day. Active diclofenac (VOLTAREN) 75 mg EC tablet Take 1 tablet (75 mg total) by mouth. 08/11/19 21 025 Discontinued diclofenac (Voltaren) 1 % topical gel APPLY SPARINGLY TO AFFECTED AREA(S) ONCE DAILY 02/03/20 15 025 Discontinued ZOLMitriptan (ZOMIG) 5 mg tablet Take 1 tablet (5 mg total) by mouth. 02/19/20 21 025 Discontinued brimonidine 0.025 % drops Administer 1 drop into both eyes every 8 (eight) hours. 025 Discontinued hydrocortisone 1 % ointment Apply topically 2 (two) times a day. 025 Discontinued timoloL (BETIMOL) 0.5 % ophthalmic solution Administer 1 drop into the right eye 1 (one) time each day. 025 Discontinued VIT B COMPLEX 100 COMBO NO.2 ORAL Take by mouth. 025 Discontinued polyethylene glycol (Golytely) 236-22.74-6.74 -5.86 gram solution Take 4L by mouth once for one dose. May substitue any PEG. Starting at 2PM the day before your procedure drink 1 8oz glasses at your own pace until you complete half of the gallon. Finish 2nd half of the gallon at 8PM. 4000 mL 01/09/20 25 025 Discontinued bisacodyL (DULCOLAX) 5 mg EC tablet Take 2 tablets by mouth right before beginning bowel prep. See instructions provided by the office 2 tablet 01/09/20 25 025 Discontinued Active Problems Problem Noted Date Diagnosed Date Microscopic hematuria 02/14/2019 Dysuria 01/31/2019 Acute sinusitis 09/12/2018 Rotator cuff arthropathy of right shoulder 07/19 Shoulder pain, right 06/21/2018 Fatty liver 04/15/2018 Disc degeneration, lumbar 10/04/2017 Lumbar radiculopathy 08/09/2017 Essential hypertension 06/19/2017 Nontoxic thyroid nodule 06/19/2017 Migraine 04/10/2017 Disc disorder of cervical region 01/04/2017 Fibromyalgia 09/05/2016 Esophageal reflux 11/09/2015 Ulcerative colitis ([facility] V24, [facility] V28) Anxiety 05/21/2014 Insomnia 05/21/2014 Urinary incontinence 01/19/2012 Internal hemorrhoids 09/20/2010 Encounters Date Type Department Care Team Description 01/22/2025 9:07 AM EDT Anesthesia Event [facility] Endoscopy [address] [place] [address] Devan Hoyt DO 01/22/2025 7:42 AM EDT - 01/22/2025 11:59 PM EDT Hospital Encounter [facility] [address] [place] [address] Samuel Guy MD Korobkov, Vitaliy, DO Hayes, Brett L, CRNA Colon cancer screening Discharge Disposition: Home or Self Care from Last 3 Months Surgical History Surgery Date Site/Laterality Comments HYSTERECTOMY PROCEDURE: HISTORICAL HYSTERECTOMY CHOLECYSTECTOMY PROCEDURE: HISTORICAL CHOLECYSTECTOMY SHOULDER SURGERY Right Medical History Medical History Date Comments Migraines Hypertension Diabetes mellitus ([facility] V24, [facility] V28) GERD (gastroesophageal reflux disease) Depression Anxiety Glaucoma Anemia Family History Relation Name Status Comments Father H/O OF COLON CA NCER Social History Tobacco Use Types Packs/Day Years [...] Travel Start Travel End [place] 12/01/2024 01/03/2025 Obstetrics History Last Filed Vital Signs Vital Sign Reading [...] Mass Index 22.29 01/22/2025 8:30 AM EDT Plan of Treatment Health Maintenance Due Date Last Done Comments Breast Cancer Screening 1956 Diabetes: Annual GFR (Glomerular Filtration Rate) 1956 Diabetes: Annual Foot Exam 1966 Diabetes: Annual Retina Eye Exam 1966 Hepatitis A Vaccines (1 of 2 - Risk 2-dose series) 1975 Zoster Vaccines (1 of 2) 2006 Hepatitis B Vaccines (1 of 3 - Risk 3-dose series) 2016 RSV Immunization Adult Patients (1 - Risk 60-74 years 1-dose series) 2016 Hepatitis C Screening 05/13/2022 Medicare Annual Wellness Visit 05/13/2022 Osteoporosis Screening (Bone Density Screening) 05/13/2022 Social Influencers of Health Screening 05/13/2022 Hypertension/CHF/CAD Annual BMP Blood Test 05/17/2022 COVID-19 Vaccine ( season) 2024 04/07/2022, 05/22/2021, 10/13/2020, Additional history exists Depression Screening 06/04/2024 Diabetes: Annual Urine Albumin-Creatinine Ratio (uACR) 01/22/2025 Diabetes: Blood Sugar Control Test (HGBA1C) 01/22/2025 Influenza Vaccine (#1) 2025 Cholesterol Screening (Lipid Panel) 11/12/2025 11/12/2020 Falls Risk Assessment 01/22/2026 01/22/2025 DTaP,Tdap,and Td Vaccines (2 - Td or Tdap) 11/04/2033 11/05/2023 Colorectal Cancer Screening: Colonoscopy 01/22/2035 01/22/2025, 07/17/2019 Pneumococcal Vaccine: 50+ Years Completed 11/05/2021 HIB Vaccines Aged Out No longer eligi ble based on patient's age to complete this topic HPV Vaccines Aged Out No longer eligi ble based on patient's age to complete this topic IPV Vaccines Aged Out No longer eligi ble based on patient's age to complete this topic MMR Vaccines Aged Out No longer eligi ble based on patient's age to complete this topic Meningococcal ACWY Vaccine Aged Out N o longer eligible based on patient's age to complete this topic Meningococcal B Vaccine Aged Out No l onger eligible based on patient's age to complete this topic RSV Immunization Patients Under 20 months Aged Out No longer eligible based on patient's age to complete this topic Varicella Vaccines Aged Out No longer eligible based on patient's age to complete this topic Procedures Procedure Name Priority Date/Time Associated Diagnosis Comments COLONOSCOPY Routine 01/22/2025 9:31 AM EDT Colon cancer screening from Last 3 Months Results * COLONOSCOPY Anesthesia - MAC; SP ENDOSCOPY (01/22/2025 9:31 AM EDT) Anatomical Region Laterality Modality Other 01/22/2025 9:03 AM EDT Impressions 01/22/2025 9:32 AM EDT - Internal hemorrhoids. - No specimens collected. Recommendation: - Repeat colonoscopy in 10 years for screening purposes. - Use fiber, for example Citrucel, Fibercon, Konsyl or Metamucil. Narrative 01/22/2025 9:[address] [facility] Patient Name: Ana Maria Quintana Procedure [...] K64.0, First degree hemorrhoids CPT copyright 2020 [employer] [place] [employer]. All rights reserved. The codes documented in this report are preliminary and upon pre coder review may be revised to meet current compliance requirements. Samuel Guy MD 01/22/2025 9:31:59 AM This report has been signed electronically.Samuel Guy MD Number of Addenda: 0 Note Initiated On: 01/22/2025 9:03 AM Scope In: Scope Out: Endoscopy Department at [facility] - [address] [place] [phone] Procedure Note Samuel Guy MD - 01/22/2025 [facility] Patient Name: Ana Maria Mariano Procedure Date: 01/22/2025 9:03 AM Date of [...] K64.0, First degree hemorrhoids CPT copyright 2020 [employer] [place] [employer]. All rights reserved. The codes documented in this report are preliminary and upon pre coder reviewmay be revised to meet current compliance requirements. Samuel Guy MD 01/22/2025 9:31:59 AM This report has been signed electronically.Samuel Guy MD Number of Addenda: 0 Note Initiated On: 01/22/2025 9:03 AM Scope In: Scope Out: Endoscopy Department at [facility] - [address] [place] [phone] IMPRESSION: - Internal hemorrhoids. - No specimens collected. Recommendation: - Repeat colonoscopy in 10 years for screening purposes. - Use fiber, for example Citrucel, Fibercon, Konsylor Metamucil. us Samuel Guy MD GI~PROCEDURE ORDERABLES Final Re sult from Last 3 Months Insurance MEDICARE [facility] Care Teams Four Roll Calender Operator Relationship Specialty Start Date End Date Uriel Pope PA [address] [place] [address] PCP - General Physician Boiler Washer 09/29/24
--- NOTE | 2025-01-27 07:55 | A.OFFVIS_ITS ---
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 Patient reports the following medical history: She underwent a recent colonoscopy without complication. She reports she is due to have a calcium infusion. She also states her PCP has advised her to have an iron injection/infusion, as her iron levels have decreased despite oral iron supplementation with vitamin C.? She states she is not sure about doing this, as she does not know what the side effects are.? She denies shortness of breath, restless legs, and easy fatigability.? States her anemia started many years ago due to menorrhagia, which required a hysterectomy and chronic iron supplementation. She reports an increase in vitiligo on her chest, face, and eyebrows. ?She is using a topical cream, which she does not think is very beneficial. ?She states she is followed by [facility] and has a follow-up appointment in a couple of days. She states the peripheral burning pain has improved somewhat; she now notices it mostly in her knees later in the day. ?Amitriptyline 20-30 mg nightly, and applying ice to her knees is helpful. She is compliant with Aimovig, which she states is working very well to control her migraine attacks.? She has not needed to take any as-needed Zomig. ?She states she has enough Zomig at home and does not need a refill at this time. 07/22/2024, Previous HPI: 69-yr-old female presents for f/u visit of migraine but would also like to discuss chronic burning pain. PMH is significant for type 2 diabetes mellitus, nontoxic thyroid nodule, essential hypertension, hepatic steatosis, chronic lumbar radiculopathy, fibromyalgia, generalized anxiety disorder, depression, migraine, GERD, osteoporosis, glaucoma. Pt reports she is bothered about this ongoing burning sensation- either in her back, her legs, or upper body. Her upper back is itchy. Sometimes her arms can be cold but burning at the same time. Her eyes and face feel hot and itchy- this is not a/w migraine. She is f/b ophthalmology every 4 months- at Dr Keanu Olmos in [place]. She states she recently had a rash on her arms- which resolved. She is f/b dermatology- they do not feel this is r/t a skin process. Pt reports her neck is sometimes ok, sometimes worse. She is f/b ortho for bilateral shoulder and back pains. She states she may need a left shoulder repair. She did try holding the Aimovig for 2 weeks to see if her burning symptoms resolved, but they did not, so she resumed q 4 week dosing. She denies blue/white or red skin color changes, swelling, muscle cramps. She tried Nervive nerve relief for a couple of doses. Review of labs from PCP: Positive CHRISTIANE, 1:320 02/21/2024 CBC-WNL 04/11/2024 BMP-WNL, with exception of glucose elevated at 100. 02/21/2024 HgA1C 6.8% 02/21/2024 Alk phos 184, 02/29/2024- 191 02/29/2024 phosphorus- 4.5 02/21/2024 vitamin-D, total 85.8 02/21/2024 B12 424, folic acid greater than 20. 01/22/2024 TSH 1.65 Since the above labs, patient was referred to endocrinology for further evaluation of elevated alkaline phosphatase, which was felt to be secondary to decreased oral calcium intake and osteoporosis. Patient states she has not had follow-up related to positive CHRISTIANE finding. She states her son has a rheumatological disorder- but unsure which, he is seen in [place]. States that in the summer, she is more physically active- takes more walks and so does need to take anything for sleep. In the winter, when she is not as active, she has more sleep dififculties. She is now needing to use Amitriptyline up to 50mg qhs to help her sleep. States she does not gael this in the summer as much. The burning sensation is not better when she takes more amitriptyline. She does have dry mouth. She also is having constipation which she feels is d/t metformin and calcium. She stopped Magnesium- as this was not helping with the constipation. States the constipation was not present after starting Aimovig. Pt reports since starting Aimovig, she rarely has a moderate-severe migraine, less than once a month. Just occasionally has a mild headache in her temples which resolves quickly if she applies ice to her head. She has her zomig 5mg with her at all times. Buys it in [place] because it is cheaper there. She took Zomig last month, which was very effective- she notes that the burning sensations also stopped for the entire day. Baseline headache characteristics: Migraine w/aura- sees lightening bolts, unilateral or bilateral, frontal/nose pressure pain a/w nausea, vomiting. anorexia, photophobia, phonophobia, activity intolerance. PFS Medical History Sleep disorder Thyroid disease GERD (gastroesophageal reflux disease) HTN (hypertension) Surgical History Hx of shoulder surgery Family History Father Cancer Mother Cancer Social History Alcohol intake: never Patient Tobacco Use Status: Never used Tobacco Physical Exam Vital Signs: Last Vital Signs Pulse 74 01/27/25 07:59 BP 128/76 01/27/25 07:59 Pulse Ox 98 01/27/25 07:59 Oxygen Delivery Method Room Air 01/27/25 07:59 BMI result Body Mass Index 22.2 Const General: cooperative and no acute distress Orientation/consciousness: patient oriented x3 Resp Effort & Inspection: normal respiratory effort and able to speak in complete sentences Skin Other: Mild dry, non-erythematous papular rash across medial thoracic aspect of back. Neuro General: patient oriented x3 and no focal motor deficits Cranial nerves: Yes CN's II-XII intact bilaterally Cognition (Neuro): normal cognition Gait exam (Neuro): Normal gait present Psych Appearance: grossly normal Mental Status: mental status grossly normal Speech and movement: Normal speech and movement present Affect: normal affect Attitude: cooperative Assessment & Plan Assessment & Plan (1) Migraine with aura: Code(s): G43.109 - Migraine with aura, not intractable, without status migrainosus Category: Medical (2) Difficulty sleeping: Code(s): G47.9 - Sleep disorder, unspecified Category: Medical (3) Paresthesia of upper and lower extremities of both sides: Code(s): R20.2 - Paresthesia of skin Category: Medical Plan For chronic burning pain: Improved on amitriptyline 10-30 mg and ice application. We will reach out to [facility] to see if they can perform a skin biopsy, as the patient is also experiencing increasing symptoms of vitiligo in setting of positive CHRISTIANE and s/s suggestive of Sjogren's. Previous workup, which is notable for Positive CHRISTIANE 1:320. She has a family history of rheumatological conditions: Her son, who is being treated in [place], was asked to clarify with her son with his specific rheumatological disorder is. Rheumatology consult as ordered- to assess for Sjogren's syndrome. Future considerations to include a skin biopsy. For migraine w/ aura prevention: Continue Aimovig 140mg sc q month- Note this costs pt $300-400/month, however pt is wary to change as it is so effective. Ajovy would be less expensive on pt's current insurance formulary. For acute migraine w/ aura tx: May use ice and rest prn. Continue Zolmitriptan 5mg at onset of migraine attack, may repeat in 2 hours. Advise to keep a dose on her at all x's. Patient declines refill at this time. Advised to let us know when she needs a refill or if her current supply becomes . For sleep: Continue to engage in regular physical activity, this is one of the most import things one can do to promote sleep. Continue Amitriptyline 10-30mg qhs for sleep. Previous trials: Gabapentin- did not tolerate. For cervicalgia- Improved. Monitor clinically. Will follow-up upon review of above and patient to follow-up in clinic in 6 months or sooner prn. Medications: New zolmitriptan (Zomig) max 2 tabs per day 5 mg PO Q2H PRN 12 tabs 0RF migraine headache 12 days Coding Level of Care Code Est Pt Level 4 (88820) Diagnoses Migraine with aura G43.109 Difficulty sleeping G47.9 Paresthesia of upper and lower extremities of both sides R20.2
[2025-01-27 07:59] VITALS: BP 128/76; PULSE 74; O2SAT 98; BMI 22.2
== END 2025-01-27 08:34 | disposition home or self-care (01) ==
PROVIDERS: PCP Physician Assistant Medical; Visit Provider Nurse Practitioner Family
DX: G43.109 Migraine with aura, not intractable, without status migrainosus (principal); G47.9 Sleep disorder, unspecified; R20.2 Paresthesia of skin
CPT/HCPCS: 99214

== ENCOUNTER → 2025-01-27 07:38 | Outpatient (BNVA) | payer MEDICARE, SELFPAY | PROVIDERS: PCP Physician Assistant Medical; Visit Provider Nurse Practitioner Family | DX: G43.109 Migraine with aura, not intractable, without status migrainosus (principal); G47.9 Sleep disorder, unspecified; R20.2 Paresthesia of skin | CPT/HCPCS: 99212 ==

== ENCOUNTER 2025-04-29 10:24 | Outpatient (REF) | payer MEDICARE, SELFPAY ==
[2025-04-29 17:48] LABS: MANUAL DIFF FLAG NO
[2025-04-29 18:04] LABS: Hematocrit 34.7 % (37.0-47.0); Hemoglobin 11.7 g/dl (12.0-16.0); Imm Gran Abs Auto 0.03 X10*3/uL (0.00-0.03); Imm Gran Pct Auto 0.4 % (0.0-0.4); Lymphocytes Absolute Auto 1.7 X10*3/uL (1.2-4.9); Mean Corpuscular HGB Conc 33.7 g/dl (31.0-35.0); Mean Corpuscular Hemoglobin 29.3 pg (27.0-33.0); Mean Corpuscular Volume 86.8 fL (80.0-98.0); NRBC Abs Auto 0.000 X10*3/uL (0.0-0.012); NRBC Pct Auto 0.0 /100WBC (0.0-0.2); Platelet Count 259 X10*3/uL (160-400); Red Blood Count 4.00 X10*6/uL (4.20-5.50); White Blood Count 7.4 X10*3/uL (4.8-10.8)
[2025-04-29 18:25] LABS: Appearance Urine Clear; Glucose Urine UA Negative (Negative); PH 8.0 (5.0-9.0); Specific Gravity - Urine <= 1.005 (1.005-1.025)
[2025-04-29 18:37] LABS: Total Protein Urine Random < 7 mg/dL (<12)
[2025-04-29 18:42] LABS: Alanine Aminotransferase 37 U/L (0-31); Aspartate Amino Transferase 34 U/L (5-31); Estimated Glomerular Filt Rate > 60
[2025-04-29 18:43] LABS: Erythrocyte Sedimentation Rate 28 MM/HR (0-20)
[2025-05-03 13:53] LABS: Antibody to SS-A Antigen <1.0 NEG AI (<1.0 NEG); Antibody to SS-B Antigen <1.0 NEG AI (<1.0 NEG); SM/Ribonucleoprotein Ab <1.0 NEG AI (<1.0 NEG); Smith Protein <1.0 NEG AI (<1.0 NEG)
== END 2025-04-29 10:25 | disposition home or self-care (01) ==
LOC: HO.HKASLDS 10:24
PROVIDERS: PCP Physician Assistant Medical; Visit Provider Internal Medicine Rheumatology
DX: R76.0 Raised antibody titer (principal); R76.89 Other specified abnormal immunological findings in serum
CPT/HCPCS: 36415; 81001; 82565; 82570; 84156; 84450; 84460; 85025; 85652; 86140; 86160; 86225; 86235; 99202

== ENCOUNTER 2025-04-29 10:24 | Outpatient (AMB) | payer MEDICARE, SELFPAY ==
[2025-04-29 11:06] VITALS: BP 140/80; PULSE 82; O2SAT 99; BMI 22.6
--- NOTE | 2025-04-29 11:06 | MHC.OFFVIS ---
Vital Signs 04/29/25 11:06 Height 4 ft 10 in Weight 108 lb 0.424 oz BMI 22.6 BP 140/80 H Blood Pressure Location Rt brachial Position Sitting Pulse 82 Pulse Source Pulse Oximeter Pulse Oximetry (%) 99 Oxygen Delivery Method Room Air Intake Visit Reasons: abnormal labs/ New patient Intake Note: Patient presents today for abnormal labs Accompanied by: Self / Same As Patient Allergies Penicillins Allergy (Severe, Verified 01/27/25 07:55) Skin comes off, rash, painful Sulfa (Sulfonamide Antibiotics) Allergy (Mild, Verified 01/27/25 07:55) Hives all over HPI HPI abnormal labs/ New patient: Details: New patient visit for positive CHRISTIANE: [facility] with concern for sjogren's syndrome She has chronic back pain secondary to herniated disc. Hx of chronic dry eyes and glaucoma. She stopped taking amitrytyline due to concern that it was causing constipation. Denies dry mouth. Uses refresh and topical antihistamine OTC and 2 prescribed drops for glaucoma tx. She was told DM has resolved. Intermittent burning in knees is still present but burning sensation in upper extremeties and face resolved. She takes Nerve relief diatary supplement qhs PRN. Her scale manager in [place] told her that she mild neuropathy on her feet. Denies fevers +oral ulcers recurrent. Once a year. Last one was under tongue in February. Migraines reduced in frequency Aimovig. Denies tinnitus, fevers, dyspnea, pleurisy, rash, photosensitivity, urinary symptoms, nausea, vomiting, diarrhea, Raynaud's phenomenon. Past medical history and medication list reviewed with patient. Son has Ankylosing Spondylitis. Denies smoking, alcohol or recreational drug use history. She immigrated from [place] 25 years ago. [facility] Medical History Sleep disorder Thyroid disease GERD (gastroesophageal reflux disease) HTN (hypertension) Surgical History Hx of shoulder surgery Family History Father Cancer Mother Cancer Social History Alcohol intake: never Patient Tobacco Use Status: Never used Tobacco Physical Exam Exam Exam: General: Comfortable CVS: RRR Respiratory: clear to auscultation bilaterally. Good respiratory effort Skin: No lesions seen MSK: No tender joints. Heberden nodes present. No synovitis. Normal range of motion of upper extremities and lower extremities. Vital Signs: Last Vital Signs Pulse 82 04/29/25 11:06 BP 140/80 H 04/29/25 11:06 Pulse Ox 99 04/29/25 11:06 Oxygen Delivery Method Room Air 04/29/25 11:06 BMI result Body Mass Index 22.6 Assessment & Plan Assessment & Plan (1) Positive CHRISTIANE (antinuclear antibody): Comment: Positive CHRISTIANE, 1:320 ([facility]) with paresthesias in an extremities and face improved since diabetes has been controlled, dry eyes, oral ulcer and migraines. Migraines are controlled on Aimovig. She has history of yearly oral/tongue ulcers. I will complete workup for SLE and Sjogren syndrome with labs. Code(s): R76.8 - Other specified abnormal immunological findings in serum Category: Medical Plan: Labs ordered Return to clinic in 3 months Orders: Orders Complete Blood Count Auto Diff 04/29/25 R76.0 - Raised antibody titer Alanine Aminotransferase 04/29/25 R76.0 - Raised antibody titer Creatinine 04/29/25 R76.0 - Raised antibody titer Erythrocyte Sedimentation Rate 04/29/25 R76.0 - Raised antibody titer Sm Sm/[employer] Antibodies 04/29/25 R76.0 - Raised antibody titer Complement C4 04/29/25 R76.0 - Raised antibody titer UA ClnCatch+Micro w/rflx Cult 04/29/25 R76.0 - Raised antibody titer Protein Creatinine Ratio, Ur 04/29/25 R76.0 - Raised antibody titer Aspartate Amino Transferase 04/29/25 R76.0 - Raised antibody titer C Reactive Protein 04/29/25 R76.0 - Raised antibody titer Anti DNA DS Antibody 04/29/25 R76.0 - Raised antibody titer Complement C3 04/29/25 R76.0 - Raised antibody titer Sjogren's Antibodies 04/29/25 R76.0 - Raised antibody titer Coding Level of Care Code New Pt Level 4 (55429) Diagnoses Positive CHRISTIANE (antinuclear antibody) R76.8
--- OUTSIDE RECORDS SUMMARY | 2025-04-29 12:20 | XMS_ITS | Clinical Summary ---
Author Organization [address] [facility] Address [address] [place] [address] Phone Care Team Providers Care Servicing Rep Name Role Phone Uriel Pope Primary Care Provider [phone] Allergies Active Allergy Reactions Criticality Noted Date [...] (10 mg total) by mouth at bedtime. 1 Active amLODIPine (NORVASC) 5 mg tablet Take 2 tablets (10 mg total) by mouth 1 (one) time each day. 1 Active Bifidobacterium infantis (Align) 4 mg capsule one tablet by mouth daily. 5 Active erenumab-aooe (Aimovig Autoinjector) 140 mg/mL injection Inject 1 mL (140 mg total) under the skin every 30 (thirty) days. 1 Active lansoprazole (PREVACID) [address] capsule Take 2 capsules (30 mg total) by mouth 1 (one) time each day before breakfast. Active triamcinolone (NASACORT) 55 mcg nasal inhaler Administer 1 spray into affected nostril(s) 1 (one) time each day. 0 Active calcium citrate/vitamin D3 (CITRACAL + D MAXIMUM [...] mouth 1 (one) time each day. Active dorzolamide-dima oloL (COSOPT) 22.3-6.8 mg/mL ophthalmic solution 1 drop 2 (two) times a day. Active Active Problems Problem Noted Date Diagnosed Date Microscopic hematuria 02/14/2019 Dysuria 01/31/2019 Acute sinusitis 09/12/2018 Rotator cuff arthropathy of right shoulder 07/19 Shoulder pain, right 06/21/2018 Fatty liver 04/15/2018 Disc degeneration, lumbar 10/04/2017 Lumbar radiculopathy 08/09/2017 Essential hypertension 06/19/2017 Nontoxic thyroid nodule 06/19/2017 Migraine 04/10/2017 Disc disorder of cervical region 01/04/2017 Fibromyalgia 09/05/2016 Esophageal reflux 11/09/2015 Ulcerative colitis ([facility] V24, [facility] V28) Anxiety 05/21/2014 Insomnia 05/21/2014 Urinary incontinence 01/19/2012 Internal hemorrhoids 09/20/2010 Surgical History Surgery Date Site/Laterality Comments HYSTERECTOMY PROCEDURE: HISTORICAL HYSTERECTOMY CHOLECYSTECTOMY PROCEDURE: HISTORICAL CHOLECYSTECTOMY SHOULDER SURGERY Right Medical History Medical History Date Comments Migraines Hypertension Diabetes mellitus ([facility] V24, [facility] V28) GERD (gastroesophageal reflux disease) Depression Anxiety Glaucoma Anemia Family History Relation Name Status Comments Father H/O OF COLON [place] NCER Social History Tobacco Use Types Packs/Day Years Used Date Smoking Tobacco: Never Smokeless Tobacco: Never Alcohol Use Standard Drinks/Week Comments No 0 (1 standard drink = 0.6 oz pur e alcohol) Interpersonal Safety Answer Date Record ed Physical Abuse Unrecognized value 01/22/2025 Verbal Abuse Unrecognized value 01/22/2025 Comments No Sex and Gender Information Value Date Recorded Sex Assigned at Female 01/03/2025 12:31 PM EDT Legal Sex Female 3:21 AM EST Gender Identity Female 01/03/2025 12:31 PM EDT Sexual Orientation Straight 01/22/2025 7: 38 AM EDT Obstetrics History Last Filed Vital Signs Vital [...] of 2 - Risk 2-dose series) 1975 RSV Immunization Adult Patients (1 - Risk 50-74 years 1-dose series) 2006 Zoster Vaccines (1 of 2) 2006 Hepatitis B Vaccines (1 of 3 - Risk 3-dose series) 2016 Hepatitis C Screening 05/13/2022 Medicare Annual Wellness Visit 05/13/2022 Osteoporosis Screening (Bone Density Screening) 05/13/2022 Social Influencers of Health Screening 05/13/2022 Hypertension/CHF/CAD Annual BMP Blood Test 05/17/2022 Depression Screening 06/04/2024 Diabetes: Annual Urine Albumin-Creatinine Ratio (uACR) 01/22/2025 Diabetes: Blood Sugar Control Test (HGBA1C) 01/22/2025 COVID-19 Vaccine ( season) 2025 04/07/2022, 05/22/2021, 10/13/2020, Additional history exists Influenza Vaccine (#1) 2025 Cholesterol Screening (Lipid [...] Colon cancer screening from Last 3 Months or Most Recently Relevant to Health Maintenance Results * COLONOSCOPY Anesthesia - [facility]; [facility] ENDOSCOPY (01/22/2025 9:31 AM EDT) Anatomical Region Laterality Modality Other 01/22/2025 9:03 AM EDT Impressions 01/22/2025 9:32 AM EDT - Internal hemorrhoids. - No specimens collected. Recommendation: - Repeat colonoscopy in 10 years for screening purposes. - Use fiber, for example Citrucel, Fibercon, Konsyl or Metamucil. Narrative 01/22/2025 9:32 AM EDT [facility] Patient Name: Ana Maria Quintana Procedure [...] K64.0, First degree hemorrhoids CPT copyright 2020 [employer]. All rights reserved. The codes documented in this report are preliminary and upon calendering supervisor review may be revised to meet current compliance requirements. Samuel Guy MD 01/22/2025 9:31:59 AM This report has been signed electronically.Samuel Guy MD Number of Addenda: 0 Note Initiated On: 01/22/2025 9:03 AM Scope In: Scope Out: Endoscopy Department at [facility] - [address] [place] [id number] Procedure Note Samuel Guy MD - 01/22/2025 [facility] Patient Name: Ana Maria Quintana Procedure [...] K64.0, First degree hemorrhoids CPT copyright 2020 [employer]. All rights reserved. The codes documented in this report are preliminary and upon calendering supervisor reviewmay be revised to meet current compliance requirements. Samuel Guy MD 01/22/2025 9:31:59 AM This report has been signed electronically.Samuel Guy MD Number of Addenda: 0 Note Initiated On: 01/22/2025 9:03 AM Scope In: Scope Out: Endoscopy Department at [facility] - [address] [place] [phone] IMPRESSION: - Internal hemorrhoids. - No specimens collected. Recommendation: - Repeat colonoscopy in 10 years for screening purposes. - Use fiber, for example Citrucel, Fibercon, Konsylor Metamucil. us Samuel Guy MD GI~PROCEDURE ORDERABLES Final Re sult from Last 3 Months or Most Recently Relevant to Health Maintenance Insurance MEDICARE [facility] Care Teams Servicing Rep Relationship Specialty Start Date End Date Uriel Pope PA [address] [place] [place] [address] PCP - General Physician Wrapper Stemmer Operator 09/29/24
== END 2025-04-29 13:10 | disposition home or self-care (01) ==
LOC: HO.RHES 10:24
PROVIDERS: PCP Physician Assistant Medical; Visit Provider Internal Medicine Rheumatology
DX: R76.89 Other specified abnormal immunological findings in serum (principal)
CPT/HCPCS: 99204

== ENCOUNTER 2025-05-07 09:38 | Outpatient (REF) | payer MEDICARE, SELFPAY ==
[2025-05-11 22:04] LABS: Anti Nuclear Antibody Pattern Nuclear, Homogeneous; Anti Nuclear Antibody Screen POSITIVE (NEGATIVE); Anti Nuclear Antibody Titer 1:80 titer
== END 2025-05-07 09:39 | disposition home or self-care (01) ==
LOC: HO.HKASLDS 09:38
PROVIDERS: PCP Physician Assistant Medical; Visit Provider Internal Medicine Rheumatology
DX: R76.0 Raised antibody titer (principal)
CPT/HCPCS: 36415; 86038; 86039